=== PATIENT | male | born 1970 | race Caucasian/White ===

== ENCOUNTER 2020-08-06 09:09 | Day surgery (SDC) | payer OTHER, SELFPAY ==
[~2020-08-06] VITALS: Ht 175.3 cm; Wt 80.7 kg
[~2020-08-06 09:09] MED LIST: HYDR-5191 PO; IMU50 PO; [UNRECOGNIZED DRUG - CODE] PO
[2020-08-06] MEDS ORDERED: fentaNYL citrate 0.05 MG/ML VIAL ONE (10:41)
[2020-08-06] MEDS ORDERED: LIDOCAINE 2% 100 MG/5 ML UJET TP ONE ×3 (10:50→15:35)
[2020-08-06] MEDS ORDERED: MIDAZOLAM 5 MG/5 ML VIAL ONE (11:21)
[2020-08-06] MEDS ORDERED: fentaNYL citrate 0.05 MG/ML VIAL IVP ONE (15:35)
[2020-08-06] MEDS ORDERED: MIDAZOLAM 2 MG/2 ML VIAL IVP ONE (15:35)
== END 2020-08-06 12:25 | disposition home or self-care (01) ==
LOC: MMU 09:09 → MDS 09:09
PROVIDERS: ATTEND Internal Medicine Gastroenterology
DX: K51.00 Ulcerative (chronic) pancolitis without complications (principal); K63.5 Polyp of colon; Z88.5 Allergy status to narcotic agent; Z20.828 Contact with and (suspected) exposure to other viral communicable diseases; Z79.899 Other long term (current) drug therapy
CPT/HCPCS: 45380; 88305; J2250; J3010; U0003